=== PATIENT | female | born 1990 | race Caucasian/White ===

== ENCOUNTER 2021-07-29 20:16 | Emergency (ER) | payer OTHER ==
[~2021-07-29] VITALS: Ht 152.4 cm; Wt 63.6 kg
[2021-07-29 21:03] VITALS: BP 124/63
== END 2021-07-29 22:17 | disposition home or self-care (01) ==
LOC: EMS 20:22
DX: Z48.00 Encounter for change or removal of nonsurgical wound dressing (principal); L02.416 Cutaneous abscess of left lower limb
CPT/HCPCS: 99281; Z7502